=== PATIENT | female | born 1975 | race African-American/Black ===

== ENCOUNTER 2020-10-07 16:51 | Inpatient (IN) ==
[2020-10-07 18:36] LABS: Basophils # 0.1 10*3/uL (0.0-0.2); Basophils % 0.5 % (0.0-0.8); Eosinophils % 0.1 % (0.00-10.9); Hematocrit 45.9 VOL% (35.7-47.0); Immature Granulocytes % 0.5 %; Immature Granulocytes Absolute 0.09 #; Lymphocytes % 6.2 % (21.3-54.2); Mean Corpuscular HGB Conc 30.5 GM/DL (32-36); Mean Corpuscular Volume 91.3 FL (87-102); Monocytes % 17.1 % (1.7-12.7); Neutrophils % 75.6 % (38.7-73.9); Platelet Count 288 T/CUMM (130-400); Red Blood Count 5.03 MC/CUMM (3.8-5.5); Red Cell Distribution Width 21.2 % (9.3-17.3); White Blood Count 16.7 T/CUMM (4-12)
[2020-10-07 18:40] LABS: ABG Base Excess -10.3 MMOL/L (-2.5-2.5); ABG HCO3 16.4 MMOL/L (20-26); ABG PCO2 31.8 MM HG (35-48); ABG PH 7.291 (7.35-7.45); ABG PO2 82.3 MM HG (80-95); ABG TCO2 13.5 MMOL/L (23-27)
[2020-10-07 19:02] LABS: Lactic Acid 1.3 MMOL/L (0.4-2.0)
[2020-10-07 19:04] LABS: Salicylate 4.8 MG/DL (2.8-20)
[2020-10-07] MEDS ORDERED: SODIUM CHLORIDE 0.9% 1,000 ML IV STA ×2 (19:06→19:26)
[2020-10-07] MEDS ORDERED: INSULIN REGULAR 100 UNIT/ML IV STA (19:06)
[2020-10-07 19:07] LABS: Alanine Aminotransferase 17 U/L (13-56); Albumin 3.7 G/DL (3.4-5.0); Alkaline Phosphatase 132 U/L (45-117); Aspartate Amino Transferase 13 U/L (0-37); Blood Urea Nitrogen 40 MG/DL (7-18); Calcium 10.5 MG/DL (8.5-10.1); Carbon Dioxide 15 MMOL/L (21-32); Estimated Glom Filtration Rate 33 ML/MIN; Glucose 373 MG/DL (74-106); Osmolality,Calculated 349.9 MOS/KG (273-304); Potassium 4.3 MMOL/L (3.5-5.1); Thyroid Stimulating Hormone 0.058 uIU/ml (0.358-3.74); Total Protein 9.5 G/DL (6.4-8.2)
[2020-10-07 19:08] LABS: Acetaminophen < 2.0 UG/ML (10-30)
[2020-10-07 19:11] LABS: Sodium 165 MMOL/L (136-145)
[2020-10-07 19:18] LABS: Prolactin 5.3 ng/mL (2.8-29.2)
[2020-10-07 19:28] LABS: Free T4 (Free Thyroxine) 0.89 NG/DL (0.76-1.46)
[2020-10-07] MEDS ORDERED: SODIUM CHLORIDE 0.9% 2,000 ML IV STA (19:35)
[2020-10-07 19:36] LABS: Bacteria,Urine Occasional /HPF (Few); Blood, Urine Moderate mg/dL (Negative); Glucose,Urine (UA) >=500 mg/dL (Negative); Hyaline Casts,Urine 27 /LPF (0-3); Ketones,Urine 80 mg/dL (Negative); Mucus,Urine Occasional /LPF (Occasional); Nitrite,Urine Negative (Negative); Protein,Urine >=500 MG/DL; RBC,Urine 2 /HPF (0-4); Squamous Epithelial Cell,Urine Occasional /HPF (0-10); Urine Appearance Slightly Hazy (Clear); Urine Color Yellow (Yellow); Urine Specific Gravity 1.032 (1.001-1.035)
[2020-10-07 19:36] LABS: Barbiturates Screen,Urine Negative (Negative); Benzodiazepines Screen,Urine Negative (Negative); Cannabinoid Screen,Urine Negative (Negative); Opiate Screen,Urine Negative (Negative); Phencyclidine Screen,Urine Negative (Negative)
[2020-10-07 19:48] LABS: PT Patient Result 11.2 SECS (10.5-12.0)
[2020-10-07 19:52] LABS: Bilirubin,Urine Small mg/dL (Negative)
[2020-10-07 20:03] LABS: Hypochromasia 3+; Lymphocytes 11 % (20-55); Microcytosis 2+; Nucleated Red Blood Cells 1 (0-5); Segmented Neutrophils 76 % (50-85); Total Cells Counted 100
[2020-10-07] MEDS ORDERED: ALBUTEROL 2.5 MG/3 ML NEB RESP TX PRN (20:32)
[2020-10-07] MEDS ORDERED: GLUCAGON 1 MG VIAL IM PRN (20:32)
[2020-10-07] MEDS ORDERED: ONDANSETRON 4 MG/2 ML VIAL IV PRN (20:32)
[2020-10-07] MEDS ORDERED: DEXTROSE 50% 25 GM/50 ML VIAL IV PRN ×2 (20:32)
[2020-10-07] MEDS ORDERED: PANTOPRAZOLE 40 MG VIAL IV SCH (21:00)
[2020-10-07] MEDS: ENOXAPARIN 30 MG/0.3 ML SYRINGE SUBCUT SCH (21:23)
[2020-10-07] MEDS: INSULIN LISPRO 100 UNIT/ML SUBCUT SCH ×2 (21:23→23:33)
[2020-10-07] MEDS: LACTATED RINGERS 1,000 ML IV SCH (21:24)
[2020-10-07 21:43] LABS: Calcium 9.4 MG/DL (8.5-10.1); Osmolality,Calculated 356.3 MOS/KG (273-304); Potassium 4.3 MMOL/L (3.5-5.1)
[2020-10-07] MEDS: POTASSIUM CHLORIDE 20 MEQ TABLET PO SCH (22:38)
[2020-10-07] MEDS ORDERED: LABETALOL 20 MG/4 ML SYRINGE IV ONE (23:44)
[2020-10-08] MEDS: POTASSIUM CHLORIDE 20 MEQ TABLET PO SCH (01:12)
[2020-10-08 01:16] LABS: Calcium 9.4 MG/DL (8.5-10.1); Osmolality,Calculated 350.1 MOS/KG (273-304); Potassium 3.8 MMOL/L (3.5-5.1)
[2020-10-08] MEDS: INSULIN LISPRO 100 UNIT/ML SUBCUT SCH ×7 (01:42→20:46)
[2020-10-08] MEDS: DEXTROSE 5% LACTATED RINGERS 1,000 ML IV SCH ×2 (01:42→05:37)
[2020-10-08] MEDS: LACTATED RINGERS 1,000 ML IV SCH (02:51)
[2020-10-08 05:58] LABS: Calcium 9.8 MG/DL (8.5-10.1); Osmolality,Calculated 352.2 MOS/KG (273-304); Potassium 4.3 MMOL/L (3.5-5.1)
[2020-10-08 06:00] LABS: Risk Ratio 4.96
[2020-10-08] MEDS ORDERED: DEXTROSE 5% NACL 0.45% 1,000 ML IV SCH (07:00)
[2020-10-08 08:22] LABS: Basophils # 0.1 10*3/uL (0.0-0.2); Basophils % 0.6 % (0.0-0.8); Eosinophils % 0.3 % (0.00-10.9); Hematocrit 39.9 VOL% (35.7-47.0); Hemoglobin 12.1 GM/DL (12.0-16.0); Immature Granulocytes % 0.5 %; Immature Granulocytes Absolute 0.05 #; Lymphocytes # 1.4 10*3/uL (1.4-4.0); Lymphocytes % 14.5 % (21.3-54.2); Mean Corpuscular HGB Conc 30.3 GM/DL (32-36); Mean Corpuscular Volume 91.5 FL (87-102); Mean Platelet Volume 12.9 FL (9.6-12.0); Monocytes % 16.2 % (1.7-12.7); Neutrophils % 67.9 % (38.7-73.9); Platelet Count 193 T/CUMM (130-400); Red Blood Count 4.36 MC/CUMM (3.8-5.5); White Blood Count 9.6 T/CUMM (4-12)
[2020-10-08 08:39] LABS: Calcium 9.6 MG/DL (8.5-10.1); Osmolality,Calculated 345.6 MOS/KG (273-304); Potassium 3.8 MMOL/L (3.5-5.1)
[2020-10-08 08:41] LABS: Eosinophils 1 % (0-10); Hypochromasia Slight; Lymphocytes 14 % (20-55); Microcytosis Slight; Ovalocytes Slight; Platelet Estimate Adequate; Segmented Neutrophils 75 % (50-85); Total Cells Counted 100
[2020-10-08] MEDS: DEXTROSE 5% 1,000 ML IV SCH ×3 (09:26→19:47)
[2020-10-08] MEDS: MULTIVITAMIN (BEROCCA) TABLET PO SCH (11:03)
[2020-10-08] MEDS: FOLIC ACID 1 MG TABLET PO SCH (11:03)
[2020-10-08] MEDS ORDERED: INSULIN LISPRO 100 UNIT/ML SUBCUT SCH (12:00)
[2020-10-08] MEDS: INSULIN GLARGINE 100 UNIT/ML SUBCUT SCH ×2 (13:01→20:46)
[2020-10-08 13:42] LABS: Calcium 9.6 MG/DL (8.5-10.1); Osmolality,Calculated 347.3 MOS/KG (273-304); Potassium 3.4 MMOL/L (3.5-5.1)
[2020-10-08] MEDS ORDERED: POTASSIUM CHLORIDE 20 MEQ TABLET PO PRN (17:43)
[2020-10-08] MEDS: POTASSIUM CHLORIDE RIDER 10 MEQ/100 ML PREMIX IV PRN ×3 (18:29→20:47)
[2020-10-08 19:26] LABS: Calcium 9.3 MG/DL (8.5-10.1); Osmolality,Calculated 341.6 MOS/KG (273-304); Potassium 3.3 MMOL/L (3.5-5.1)
[2020-10-08] MEDS: ENOXAPARIN 30 MG/0.3 ML SYRINGE SUBCUT SCH (20:47)
[2020-10-08] MEDS: ATORVASTATIN 40 MG TABLET PO SCH (20:47)
[2020-10-09] MEDS: DEXTROSE 5% 1,000 ML IV SCH ×2 (04:22→10:29)
[2020-10-09 05:10] LABS: Basophils # 0.1 10*3/uL (0.0-0.2); Basophils % 0.9 % (0.0-0.8); Eosinophils # 0.1 10*3/uL (0.0-0.87); Eosinophils % 0.7 % (0.00-10.9); Hematocrit 35.1 VOL% (35.7-47.0); Hemoglobin 10.4 GM/DL (12.0-16.0); Immature Granulocytes % 0.4 %; Immature Granulocytes Absolute 0.03 #; Lymphocytes # 1.9 10*3/uL (1.4-4.0); Mean Corpuscular HGB Conc 29.6 GM/DL (32-36); Mean Corpuscular Volume 94.4 FL (87-102); Mean Platelet Volume 13.5 FL (9.6-12.0); Monocytes % 15.9 % (1.7-12.7); Neutrophils % 59.1 % (38.7-73.9); Platelet Count 155 T/CUMM (130-400); Red Blood Count 3.72 MC/CUMM (3.8-5.5); Red Cell Distribution Width 20.7 % (9.3-17.3); White Blood Count 8.1 T/CUMM (4-12)
[2020-10-09 05:26] LABS: Albumin 2.5 G/DL (3.4-5.0); Bilirubin,Total 0.5 MG/DL (0.2-1.0); Calcium 8.6 MG/DL (8.5-10.1); Potassium 3.3 MMOL/L (3.5-5.1); Total Protein 6.5 G/DL (6.4-8.2)
[2020-10-09 05:36] LABS: Eosinophils 1 % (0-10); Hypochromasia 1+; Lymphocytes 20 % (20-55); Microcytosis 1+; Platelet Estimate Adequate; Segmented Neutrophils 67 % (50-85); Total Cells Counted 100
[2020-10-09] MEDS: POTASSIUM CHLORIDE RIDER 10 MEQ/100 ML PREMIX IV PRN ×4 (06:29→12:09)
[2020-10-09] MEDS: MULTIVITAMIN (BEROCCA) TABLET PO SCH (08:36)
[2020-10-09] MEDS: INSULIN LISPRO 100 UNIT/ML SUBCUT SCH ×4 (08:37→20:57)
[2020-10-09] MEDS: INSULIN GLARGINE 100 UNIT/ML SUBCUT SCH ×2 (08:45→20:57)
[2020-10-09] MEDS: FOLIC ACID 1 MG TABLET PO SCH (08:45)
[2020-10-09 08:59] LABS: Calcium 8.9 MG/DL (8.5-10.1); Osmolality,Calculated 338.5 MOS/KG (273-304)
[2020-10-09] MEDS: THIAMINE 200 MG/2 ML VIAL IV SCH (10:27)
[2020-10-09] MEDS: SODIUM CHLORIDE 0.45% 1,000 ML IV SCH ×3 (10:30→21:05)
[2020-10-09 10:39] LABS: Potassium 3.7 MMOL/L (3.5-5.1)
[2020-10-09] MEDS: METOPROLOL TARTRATE 25 MG TABLET PO SCH ×2 (15:08→20:57)
[2020-10-09] MEDS: ASPIRIN EC 81 MG TABLET PO SCH (15:08)
[2020-10-09] MEDS: ATORVASTATIN 40 MG TABLET PO SCH (20:57)
[2020-10-09] MEDS: ENOXAPARIN 30 MG/0.3 ML SYRINGE SUBCUT SCH (20:59)
[2020-10-10] MEDS: SODIUM CHLORIDE 0.45% 1,000 ML IV SCH ×3 (05:05→13:27)
[2020-10-10 05:56] LABS: Basophils % 0.5 % (0.0-0.8); Eosinophils # 0.1 10*3/uL (0.0-0.87); Eosinophils % 2.2 % (0.00-10.9); Hematocrit 31.6 VOL% (35.7-47.0); Hemoglobin 9.6 GM/DL (12.0-16.0); Immature Granulocytes % 0.5 %; Immature Granulocytes Absolute 0.03 #; Lymphocytes # 2.1 10*3/uL (1.4-4.0); Lymphocytes % 33.1 % (21.3-54.2); Mean Corpuscular HGB Conc 30.4 GM/DL (32-36); Mean Corpuscular Volume 91.6 FL (87-102); Monocytes % 16.2 % (1.7-12.7); Neutrophils % 47.5 % (38.7-73.9); Platelet Count 120 T/CUMM (130-400); Red Blood Count 3.45 MC/CUMM (3.8-5.5); Red Cell Distribution Width 20.6 % (9.3-17.3); White Blood Count 6.3 T/CUMM (4-12)
[2020-10-10 06:15] LABS: Osmolality,Calculated 323.2 MOS/KG (273-304); Potassium 3.7 MMOL/L (3.5-5.1)
[2020-10-10 06:52] LABS: Anisocytosis Slight; Band Neutrophils 9 % (0-10); Eosinophils 3 % (0-10); Lymphocytes 31 % (20-55); Macrocytosis 1+; Metamyelocytes 1 %; Platelet Estimate Adequate; Segmented Neutrophils 42 % (50-85); Total Cells Counted 100
[2020-10-10 06:53] LABS: Ovalocytes Few; Tear Drop Cells Few
[2020-10-10] MEDS: THIAMINE 200 MG/2 ML VIAL IV SCH (08:14)
[2020-10-10] MEDS: MULTIVITAMIN (BEROCCA) TABLET PO SCH (08:15)
[2020-10-10] MEDS: INSULIN GLARGINE 100 UNIT/ML SUBCUT SCH ×2 (08:15→21:53)
[2020-10-10] MEDS: ASPIRIN EC 81 MG TABLET PO SCH (08:15)
[2020-10-10] MEDS: INSULIN LISPRO 100 UNIT/ML SUBCUT SCH ×4 (08:15→21:53)
[2020-10-10] MEDS: FOLIC ACID 1 MG TABLET PO SCH (08:16)
[2020-10-10] MEDS: METOPROLOL TARTRATE 25 MG TABLET PO SCH ×2 (08:16→21:49)
[2020-10-10] MEDS ORDERED: MAGNESIUM SULF RIDER 2 GM/50 ML PREMIX IV PRN (09:38)
[2020-10-10] MEDS ORDERED: MAGNESIUM SULF RIDER 4 GM/100 ML PREMIX IV PRN (09:38)
[2020-10-10] MEDS: ATORVASTATIN 40 MG TABLET PO SCH (21:49)
[2020-10-10] MEDS: ENOXAPARIN 30 MG/0.3 ML SYRINGE SUBCUT SCH (21:53)
[2020-10-11 05:03] LABS: Basophils % 0.5 % (0.0-0.8); Eosinophils # 0.1 10*3/uL (0.0-0.87); Eosinophils % 1.2 % (0.00-10.9); Hematocrit 36.5 VOL% (35.7-47.0); Immature Granulocytes % 0.3 %; Immature Granulocytes Absolute 0.02 #; Lymphocytes # 1.5 10*3/uL (1.4-4.0); Lymphocytes % 24.9 % (21.3-54.2); Mean Corpuscular HGB Conc 30.1 GM/DL (32-36); Mean Corpuscular Volume 92.2 FL (87-102); Monocytes % 14.3 % (1.7-12.7); Neutrophils % 58.8 % (38.7-73.9); Platelet Count 107 T/CUMM (130-400); Red Blood Count 3.96 MC/CUMM (3.8-5.5); Red Cell Distribution Width 19.9 % (9.3-17.3); White Blood Count 5.9 T/CUMM (4-12)
[2020-10-11 05:12] LABS: Calcium 8.9 MG/DL (8.5-10.1); Osmolality,Calculated 321.7 MOS/KG (273-304); Potassium 3.2 MMOL/L (3.5-5.1)
[2020-10-11] MEDS: SODIUM CHLORIDE 0.45% 1,000 ML IV SCH ×4 (05:24→22:37)
[2020-10-11 05:26] LABS: Band Neutrophils 2 % (0-10); Eosinophils 3 % (0-10); Hypochromasia 1+; Lymphocytes 25 % (20-55); Microcytosis 1+; Segmented Neutrophils 61 % (50-85); Total Cells Counted 100
[2020-10-11 05:27] LABS: Atypical Lymphocytes Few; Platelet Estimate Adequate
[2020-10-11] MEDS: INSULIN LISPRO 100 UNIT/ML SUBCUT SCH ×4 (09:33→21:04)
[2020-10-11] MEDS: MULTIVITAMIN (BEROCCA) TABLET PO SCH (09:34)
[2020-10-11] MEDS: ASPIRIN EC 81 MG TABLET PO SCH (09:34)
[2020-10-11] MEDS: METOPROLOL TARTRATE 25 MG TABLET PO SCH ×3 (09:34→21:58)
[2020-10-11] MEDS: FOLIC ACID 1 MG TABLET PO SCH (09:37)
[2020-10-11] MEDS: INSULIN GLARGINE 100 UNIT/ML SUBCUT SCH ×2 (09:37→21:04)
[2020-10-11] MEDS: THIAMINE 200 MG/2 ML VIAL IV SCH (09:40)
[2020-10-11] MEDS: hydrALAZINE 25 MG TABLET PO SCH ×2 (12:44→21:04)
[2020-10-11] MEDS: ATORVASTATIN 40 MG TABLET PO SCH (21:03)
[2020-10-11] MEDS: ENOXAPARIN 30 MG/0.3 ML SYRINGE SUBCUT SCH (21:04)
[2020-10-12 05:54] LABS: Basophils % 0.3 % (0.0-0.8); Eosinophils # 0.1 10*3/uL (0.0-0.87); Eosinophils % 2.2 % (0.00-10.9); Hematocrit 34.6 VOL% (35.7-47.0); Hemoglobin 10.4 GM/DL (12.0-16.0); Immature Granulocytes % 0.6 %; Immature Granulocytes Absolute 0.04 #; Lymphocytes # 1.6 10*3/uL (1.4-4.0); Lymphocytes % 25.8 % (21.3-54.2); Mean Corpuscular HGB Conc 30.1 GM/DL (32-36); Mean Corpuscular Volume 92.5 FL (87-102); Monocytes % 17.9 % (1.7-12.7); Neutrophils % 53.2 % (38.7-73.9); Platelet Count 98 T/CUMM (130-400); Red Blood Count 3.74 MC/CUMM (3.8-5.5); Red Cell Distribution Width 19.4 % (9.3-17.3); White Blood Count 6.3 T/CUMM (4-12)
[2020-10-12 06:09] LABS: Calcium 8.5 MG/DL (8.5-10.1); Osmolality,Calculated 304.4 MOS/KG (273-304); Potassium 2.9 MMOL/L (3.5-5.1)
[2020-10-12] MEDS: SODIUM CHLORIDE 0.45% 1,000 ML IV SCH ×2 (06:23→14:20)
[2020-10-12 06:45] LABS: Eosinophils 4 % (0-10); Lymphocytes 21 % (20-55); Platelet Estimate Decreased; Segmented Neutrophils 66 % (50-85); Total Cells Counted 100
[2020-10-12 06:46] LABS: Hypochromasia Slight; Microcytosis Slight; Polychromasia Slight
[2020-10-12] MEDS: FOLIC ACID 1 MG TABLET PO SCH (09:13)
[2020-10-12] MEDS: METOPROLOL TARTRATE 25 MG TABLET PO SCH (09:13)
[2020-10-12] MEDS: ASPIRIN EC 81 MG TABLET PO SCH (09:15)
[2020-10-12] MEDS: MULTIVITAMIN (BEROCCA) TABLET PO SCH (09:15)
[2020-10-12] MEDS: hydrALAZINE 25 MG TABLET PO SCH (09:16)
[2020-10-12] MEDS: INSULIN GLARGINE 100 UNIT/ML SUBCUT SCH (09:17)
[2020-10-12] MEDS: INSULIN LISPRO 100 UNIT/ML SUBCUT SCH ×4 (09:18→21:35)
[2020-10-12] MEDS ORDERED: SODIUM CHLORIDE 0.45% 1,000 ML IV SCH (16:00)
[2020-10-12] MEDS: carvediloL 12.5 MG TABLET PO SCH (16:29)
[2020-10-12] MEDS ORDERED: INSULIN GLARGINE 100 UNIT/ML SUBCUT SCH (21:00)
[2020-10-12] MEDS ORDERED: ENOXAPARIN 40 MG/0.4 ML SYRINGE SUBCUT SCH (21:00)
[2020-10-12] MEDS: ATORVASTATIN 40 MG TABLET PO SCH (21:36)
[2020-10-12] MEDS: POTASSIUM CHLORIDE 20 MEQ TABLET PO SCH (21:36)
[2020-10-13 04:48] LABS: Basophils % 0.4 % (0.0-0.8); Eosinophils # 0.1 10*3/uL (0.0-0.87); Eosinophils % 1.3 % (0.00-10.9); Hematocrit 36.3 VOL% (35.7-47.0); Hemoglobin 11.2 GM/DL (12.0-16.0); Immature Granulocytes % 1.2 %; Immature Granulocytes Absolute 0.09 #; Lymphocytes # 1.8 10*3/uL (1.4-4.0); Lymphocytes % 23.6 % (21.3-54.2); Mean Corpuscular HGB Conc 30.9 GM/DL (32-36); Mean Corpuscular Volume 90.3 FL (87-102); Monocytes % 13.3 % (1.7-12.7); Neutrophils % 60.2 % (38.7-73.9); Platelet Count 115 T/CUMM (130-400); Red Blood Count 4.02 MC/CUMM (3.8-5.5); Red Cell Distribution Width 19.1 % (9.3-17.3); White Blood Count 7.7 T/CUMM (4-12)
[2020-10-13 05:09] LABS: Hypochromasia 1+; Microcytosis 1+
[2020-10-13 05:14] LABS: Calcium 8.5 MG/DL (8.5-10.1); Osmolality,Calculated 297.1 MOS/KG (273-304)
[2020-10-13] MEDS: THIAMINE 200 MG/2 ML VIAL IV SCH (08:02)
[2020-10-13] MEDS ORDERED: ACETAMINOPHEN 325 MG TABLET PO PRN (08:17)
[2020-10-13] MEDS: FOLIC ACID 1 MG TABLET PO SCH (08:45)
[2020-10-13] MEDS: POTASSIUM CHLORIDE 20 MEQ TABLET PO SCH (08:46)
[2020-10-13] MEDS: carvediloL 12.5 MG TABLET PO SCH (08:46)
[2020-10-13] MEDS: MULTIVITAMIN (BEROCCA) TABLET PO SCH (08:46)
[2020-10-13] MEDS: ASPIRIN EC 81 MG TABLET PO SCH (08:46)
[2020-10-13] MEDS: INSULIN LISPRO 100 UNIT/ML SUBCUT SCH ×2 (08:46→13:11)
[2020-10-13 12:36] VITALS: BP 131/77
== END 2020-10-13 13:35 | disposition home or self-care (01) | DRG 637 ==
LOC: N.ED 16:51 → SUATTDRO 19:25 → N.EDINP 19:25 → N.CC 21:40 → N.4E 10-10 17:27
PROVIDERS: ADMIT Internal Medicine; ATTEND Hospitalist